=== PATIENT | female | born 1965 | race Caucasian/White ===

== ENCOUNTER 2020-07-17 11:37 | Outpatient (REF) | payer OTHER, SELFPAY ==
--- NOTE | 2020-07-17 10:30 | ENDOMET_PTH ---
PATIENT: REBECCA CRAWFORD LOC: [facility] U#:[id number] AGE/SX: 54/F ROOM: RE07/17/[address]: Humaira Cruz DO : 1965 BED: DIS: 07/17/2020 SPEC #: [id number] RECD: 07/17/20 12:21 STATUS: CHRISTINE REQ #: [id number] NISSA: 07/17/20 10:[address]: Humaira Cruz DEPT: Surgical Specimen RECD BY: Ruthie Trejo ENTERED: 07/17/20 12:22 SP TYPE: Endomet OTHR DR: Abbi Sosa Tissues: 1 - ENDOMETRIUM BX/MICHEL Procedures: GROSS AND MICRO LEVEL 4 Comments: [id number]
== END 2020-07-17 11:57 ==
LOC: LBN 11:37
PROVIDERS: PCP Nurse Practitioner; Visit Provider Obstetrics & Gynecology
DX: N85.8 Other specified noninflammatory disorders of uterus (principal); N95.0 Postmenopausal bleeding
CPT/HCPCS: 88305